=== PATIENT | male | born 1945 | race Two or more races ===

== ENCOUNTER 2019-01-19 11:24 | Emergency (ER) | payer OTHER, BC ==
--- NOTE | 2019-01-19 12:01 | EDPHY ---
H & P Time Seen by Provider: 01/19/19 11:45 HPI/ROS: CHIEF COMPLAINT: Left calf pain HISTORY OF PRESENT ILLNESS: The patient is a 73-year-old male with a history of factor 5 Leiden(heterozygous), previous DVT who presents emergency department left calf pain. Patient is followed by Dr. Lobo. He was on Xarelto after his previous DVT but that was discontinued. He is currently not on any blood thinner. Patient developed left lower leg pain last night. He also feels small bump. He describes his symptoms on the medial anterior aspect of his lower leg. He has had no chest pain or shortness of breath. No recent trauma. No fevers or chills. REVIEW OF SYSTEMS: 10 systems were reveiwed and are negative with the exception of the elements mentioned in the history of present illness. Past Medical/Surgical History: Includes factor 5 Leiden, DVT, hypertension, GERD Past surgical history: Cataract surgery, nephrectomy Social history: Smoking Status: Former smoker Physical Exam: Vitals noted GENERAL: Well-appearing, in no acute distress, alert. HEENT: Eyes normal to inspection, normal pharynx, no signs of dehydration. NECK: Normal, supple. RESPIRATORY: Clear to auscultation bilaterally, no rales, rhonchi or wheezing. CVS: Regular rate and rhythm, no rubs, murmurs, or gallops. ABDOMEN: Soft, nontender, nondistended, no organomegaly. BACK: Normal to inspection, no CVA tenderness. SKIN: Normal color, no rash, warm, dry. No pallor. EXTREMITIES: No pedal edema, no calf tenderness, patient has mild discomfort to palpation on the left anterior herbert, no Homans sign or cords, no joint swelling. No discoloration or erythema. NEURO/PSYCH: Alert and oriented, normal mood and affect, normal motor sensory exam. No obvious cranial nerve deficit. Constitutional: Initial Vital Signs Temperature (C) 36.6 C 01/19/19 11:28 Heart Rate 55 L 01/19/19 11:28 Respiratory Rate 18 01/19/19 11:28 Blood Pressure 146/70 H 01/19/19 11:28 O2 Sat (%) 94 01/19/19 11:28 O2 Delivery Mode Room Air Allergies/Adverse Reactions: No Known Allergies Allergy (Verified 01/19/19 11:25) Home Medications: Medication Instructions Recorded Atorvastatin Calcium [Lipitor 40 08/04/18 mg (*)] Insulin Aspart [Novolog Flexpen] 100 unit SQ 08/04/18 Insulin Glargine [Lantus] 0 unit SC HS 08/04/18 Lisinopril [Zestril 10 mg (*)] 10 mg PO 08/04/18 Omeprazole 40 mg PO 08/04/18 Terazosin HCl [Hytrin 2 MG (*)] 2 mg PO 08/04/18 buPROPion [Wellbutrin] 100 mg PO 08/04/18 metFORMIN SR [Glucophage XR 500 mg 500 mg PO DAILY@1800 08/04/18 (*)] Medical Decision Making - Diagnostics Imaging Results: Imaging Impressions Extremity Venous Study 01/19/19 12:01 Impression: There is no sonographic evidence of deep or superficial vein thrombosis in the left lower extremity. Findings were discussed with ANIL MERINO MD at 12:34, on 01/19/2019. ED Course/Re-evaluation: In the emergency department I discussed possible etiologies with the patient. I answered all his questions. An ultrasound of his lower extremity was ordered. Ultrasound: Please refer the dictated report. No acute disease noted. I discussed the result with the patient. I answered all his questions. He was given warnings prior to leaving. Differential Diagnosis: My differential includes but is not limited to DVT, arterial occlusion, thrombophlebitis, contusion Departure - Departure Disposition: Home, Routine, Self-Care Clinical Impression: Leg pain Qualifiers: Laterality: left Qualified Code(s): M79.605 - Pain in left leg Condition: Good Instructions: Leg Pain (ED) Additional Instructions: The ultrasound was negative for DVT. Return with increasing pain, swelling, redness, fever or any other concerns. Referrals: Amna Hanson MD [Primary Care Provider] - 2-3 days, call for appt.
[2019-01-19 13:10] VITALS: BP 141/72
== END 2019-01-19 13:09 | disposition home or self-care (01) ==
DX: M79.662 Pain in left lower leg (principal); D68.2 Hereditary deficiency of other clotting factors; I10 Essential (primary) hypertension; K21.9 Gastro-esophageal reflux disease without esophagitis; Z87.891 Personal history of nicotine dependence